=== PATIENT | male | born 1975 | race Caucasian/White ===

== ENCOUNTER 2022-06-15 07:39 | Outpatient (CLI) | payer OTHER, SELFPAY ==
--- NOTE | 2022-07-03 18:41 | WPDHOMESLEEP ---
Sleep Study - Home Unattended Date of Study: 06/15/22 Ordering Provider: Hermelindo Wiley DO Interpreting Provider: Elizabeth Shook DO Home Sleep Study Type: Watch PAT Height: 1.89 m Weight: 102.058 kg Body Mass Index: 28.5 Neck Circumference (inches): 16.75 [place]: 15 Reason for Sleep Study Daytime hypersomnia Sleep History The patient is a 46-year-old male with hypertension and GERD that had a sleep study ordered by his primary care physician for evaluation of sleep apnea. The patient rarely awakens from sleep short of breath. He frequently awakens at night with heartburn, belching or cough. He he constantly snores loud enough that others complain. He frequently has trouble sleeping when he has a cold. He occasionally wakes up gasping for air throughout the night. He frequently has breathing problems at night observed by himself or others. He occasionally sweats excessively at night. He rarely has heart palpitations or irregular heartbeats during the night. He frequently falls asleep during the day and frequently falls asleep while driving. He frequently has trouble at school or work due to sleepiness. He rarely feels unable to move the waking up or falling asleep. He rarely experiences vivid dreamlike scenes upon awakening or falling asleep. He denies feeling afraid of going to sleep. He rarely has nightmares and rarely remembers his dreams. He frequently has thoughts racing through his mind. He rarely feels sad, depressed or anxious. He occasionally has muscular tension. He rarely notices parts of his body jerk. He occasionally kicks during the night. He denies having crawling and aching feelings in his legs as well as leg pain during the night. He rarely grinds his teeth during sleep but denies having morning jaw pain. He denies being bothered by pain during the day and denies being awakened by pain during the night. He denies waking up feeling stiff in the morning. He denies waking up with sore achy muscles. He rarely wakes up with pain in the neck, spine or other joints. He goes to bed at midnight on both weekdays and weekends. It can take him up to 3 hours to fall asleep but other times he can fall asleep immediately. He wakes up 2-3 times throughout the night for unknown reasons. It takes him 30 minutes to fall back asleep. He wakes up at 7:00 a.m. on weekdays and at 8:00 a.m. on weekends. He typically gets 3-6 hours of sleep per night. He will stay in bed for 15 minutes after waking up in the morning. He currently lives with his . He denies consuming any caffeinated beverages within 2 hours of bedtime. He does not engage in physical exercise before bedtime. He will read and watch television before falling asleep. He denies taking naps in the afternoon or the evening. He drinks 1 uncaffeinated soda per day. He denies tobacco, alcohol and recreational drug use. COUNT INCLUDES THE [facility] Surgical History Surgical History History of appendectomy Social History Social History Smoking status: Never smoker Medications Home Medications Medication Instructions Recorded Confirmed Type losartan 50 mg tablet 50 mg PO DAILY #30 tabs 04/16/22 04/16/22 Rx omeprazole 20 mg capsule,delayed 20 mg PO DAILY #30 caps 04/16/22 04/16/22 Rx release Sleep Procedure The sleep study was completed using [employer]ule[employer] a technically adequate device with seven channels: peripheral arterial tone, actigraphy, body position, snore, respiratory movement, pulse oximetry, sleep staging, and heart rate. Prior to using the device, the patient received verbal and written instructions for its application and was provided with the [facility] desk phone number for additional telephonic instruction with 24-hour availability of qualified personnel to answer questions. The study was scored using [facility] guidelines. Sleep Architecture
[2022-07-03 23:18] VITALS: BMI 28.5
== END 2022-06-18 10:47 | disposition home or self-care (01) ==
LOC: ANHCSM 07:40
PROVIDERS: PCP Family Medicine; Visit Provider Family Medicine
DX: G47.30 Sleep apnea, unspecified (principal); G47.33 Obstructive sleep apnea (adult) (pediatric)
CPT/HCPCS: 95800